=== PATIENT | male | born 1990 | race Caucasian/White ===

== ENCOUNTER 2017-01-17 22:53 | Emergency (ER) | payer SELFPAY ==
[~2017-01-17] VITALS: Ht 180.3 cm; Wt 74.6 kg
[~2017-01-17 22:53] MED LIST: MOTRIN400 MG PO; NAPROSYN500 MG PO; TAMIFLU75 MG PO; ULTRAM50 MG PO
[2017-01-18 00:42] LABS: ADD MIUA? NO; BILIRUBIN NEGATIVE; BLOOD NEGATIVE; COLOR YELLOW ((YELLOW)); GLUCOSE (STRIP) NEGATIVE; KETONES NEGATIVE; LEUKOCYTES NEGATIVE; NITRITE NEGATIVE; PROTEIN (STRIP) 30; SPECIFIC GRAVITY 1.027 (1.000-1.030); UCUL ADDED? NO; UROBILINOGEN 0.2 MG/DL (0.2-1.0)
[2017-01-18] MEDS ORDERED: PERCOCET 5/31 TABLET PO (01:30)
[2017-01-18] MEDS ORDERED: MOTRIN800 MG PO (01:30)
[2017-01-18 01:52] VITALS: BP 127/88
== END 2017-01-18 01:53 | disposition home or self-care (01) ==
LOC: EME 22:53
PROVIDERS: Physician Assistant
DX: N50.812 Left testicular pain (principal); N50.82 Scrotal pain; M54.5 Low back pain; F17.200 Nicotine dependence, unspecified, uncomplicated
CPT/HCPCS: 76870; 81003; 99281; 99284